=== PATIENT | female | born 1995 | race Hispanic/Latino ===

== ENCOUNTER 2020-11-28 17:17 | Emergency (ER) | payer OTHER ==
[2020-11-28] MEDS ORDERED: KETOROLAC TROMETHAMINE 30MG/ML ONE (18:11)
[2020-11-28] MEDS ORDERED: MORPHINE SULFATE 4 MG/1ML SYG ONE (18:11)
[2020-11-28] MEDS ORDERED: ONDANSETRON ODT 4 MG TAB ONE (18:11)
[2020-11-28 19:09] LABS: APPEARANCE,URINE Cloudy (CLEAR); BILIRUBIN,URINE Negative (NEGATIVE); COLOR,URINE Yellow (YELLOW); GLUCOSE, URINE (UA) Negative (NEGATIVE); KETONES,URINE Trace mg/dL (NEGATIVE); LEUKOCYTE ESTERASE ,URINE Small (NEGATIVE); NITRATE,URINE Negative (NEGATIVE); OCCULT BLOOD,URINE Negative (NEGATIVE); PROTEIN,URINE Negative (NEGATIVE)
[2020-11-28 19:13] LABS: HCG,QUAL RESULT NEGATIVE (NEGATIVE)
[2020-11-28 19:41] LABS: BACTERIA,URINE Moderate /HPF (None Seen); MUCUS,URINE Many LPF (None Seen); SQUAMOUS EPITHELIAL CELL,UR Many /HPF (0-2)
== END 2020-11-28 20:28 | disposition home or self-care (01) ==
LOC: EDH 17:17
DX: S39.012A Strain of muscle, fascia and tendon of lower back, initial encounter (principal); X58.XXXA Exposure to other specified factors, initial encounter; Y93.89 Activity, other specified; Y92.89 Other specified places as the place of occurrence of the external cause; Y99.8 Other external cause status
CPT/HCPCS: 72100; 81001; 81025; 87088; 96372 ×2; 99284; J1885; J2270